=== PATIENT | female | born 1945 | race Caucasian/White ===

== ENCOUNTER 2021-03-26 14:15 | Emergency (ER) | payer MEDICARE ==
--- NOTE | 2021-03-26 15:17 | EDM.PDOC ---
ED HPI GENERAL MEDICAL PROBLEM - General Chief Complaint: Head Injury Stated Complaint: HEAD INJURY Time Seen by Provider: 03/26/21 15:00 Source of Information: Reports: Patient History Limitations: Reports: No Limitations - History of Present Illness INITIAL COMMENTS - FREE TEXT/NARRATIVE: 76-year-old female arrives after a closed head injury causing loss of consciousness, posttraumatic amnesia, and also some pain and swelling of her middle and ring finger on the right hand and some discomfort in the right lateral thigh. She is able to walk and bear weight. She now is neurologically intact and denies any headache, dizziness, visual complaints, nausea or vomiting. She has a small laceration or puncture wound just on the lateral aspect of the right eyebrow but swelling and tenderness through the temporal area on the right side. Denies any neck pain at this time. No shortness of breath or chest pain, no upper extremity pain other than the fingers on the right hand. She is unable to get her rings off due to early swelling of the PIP joints of those 2 fingers. Onset: Sudden Duration: Hour(s): (1/2 hours ago) Location: Reports: Head, Upper Extremity, Right, Lower Extremity, Right Quality: Reports: Ache, Sharp Associated Symptoms: Reports: Confusion (Had some post head injury confusion and amnesia but now has no neurologic symptoms). Denies: Chest Pain, Cough, Fever/Chills, Headaches, Loss of Appetite, Malaise, Nausea/Vomiting, Shortness of Breath, Weakness - Related Data Allergies Allergy/AdvReac Type Severity Reaction Status Date / Time Sulfa (Sulfonamide Allergy Other Verified 03/26/21 14:42 Antibiotics) Home Meds: Home Meds . [Unable to Verify Home Med List] 03/26/21 [History] Past Medical History HEENT History: Reports: Impaired Vision Cardiovascular History: Reports: High Cholesterol Social & Family History - Tobacco Use Tobacco Use Status *Q: Never Tobacco User - Recreational Drug Use Recreational Drug Use: No ED ROS GENERAL - Review of Systems Review Of Systems: See Below Constitutional: Denies: Fever, Chills, Malaise HEENT: Denies: Vision Change Respiratory: Denies: No Symptoms, Shortness of Breath Cardiovascular: Denies: Chest Pain GI/Abdominal: Denies: Abdominal Pain, Nausea, Vomiting : Reports: No Symptoms Musculoskeletal: Reports: Hand Pain (Right side), Leg Pain (Right side). Denies: Neck Pain, Shoulder Pain Skin: Reports: Other (Small puncture on the lateral right eyebrow, also some bruising developing in the middle and ring finger on the right hand.) Neurological: Reports: Difficulty Walking (Difficulty walking but that is due from discomfort of the right thigh). Denies: Dizziness, Headache ED EXAM, HEAD INJURY - Physical Exam Exam: See Below Exam Limited By: No Limitations General Appearance: Alert, No Apparent Distress Head: Other (Some diffuse swelling over the temporal area of the right scalp, also a small less than 1 cm laceration to the lateral aspect of the right eyebrow) Nexus Criteria: No: Posterior, Midline Cervical Tenderness, Focal Neurological Deficit Eyes: Bilateral Eye: Normal Inspection Neck: Non-Tender Respiratory: No Respiratory Distress, Lungs Clear Cardiovascular: Regular Rate, Rhythm Extremities: Other (Tender along the lateral aspect of the right thigh but no bony tenderness, palpation of the inner thigh is nontender and she is able to ambulate. There is no obvious swelling, hematoma or bruising developing. The right middle and ring fingers have swollen PIP joints) Neurologic: No Motor/Sensory Deficits Skin: Other (Bruising) - [place] Coma Score Best Eye Response ([place]): (4) Open Spontaneously Best Verbal Response ([place]): (5) Oriented Best Motor Response ([place]): (6) Obeys Commands Course - Vital Signs Last Recorded V/S: Last Vital Signs Temp 98.2 F 03/26/21 14:40 Pulse 98 03/26/21 14:40 Resp 20 03/26/21 14:40 BP 162/72 H 03/26/21 14:40 Pulse Ox 98 03/26/21 14:40 - Orders/Labs/Meds Orders: Active Orders 24 hr Category Date Time Status DME for Discharge [COMM] Stat Oth 03/26/21 16:01 Ordered Meds: Medications Discontinued Medications Generic Name Dose Route Start Last Admin Trade Name Dustin PRN Reason Stop Dose Admin Bacitracin 1 dose 03/26/21 16:04 03/26/21 16:07 Bacitracin Oint 1 Gm U/D Packet TOP 03/26/21 16:05 1 dose ONETIME ONE Administration - Re-Assessments/Exams Free Text/Narrative Re-Assessment/Exam: 03/26/21 15:17 We attempted to get her rings off her right hand but were unable but they are not too tight to allow to stay for at least a day or 2 and do not have to be removed at this time. They are not strangulating the fingers. An x-ray of the right hand was obtained as well as a CT of the head without contrast. 03/26/21 16:[address] and right hand x-rays were negative. Patient was given two 6 inch Meir wraps to wrap the right thigh for support and to avoid hematoma formation. Also given crutches to assist with ambulation. Small dab of bacitracin was applied to the forehead laceration along with a Band-Aid and dressings. Patient will continue icing sore spots for the next 24 to 48 hours and increase activity as tolerated. Tetanus is current. 03/26/21 16:14 1 Steri-Strip was applied across the small laceration on her right lateral eyebrow Departure - Departure Time of Disposition: 16:24 Disposition: Home, Self-Care 01 Clinical Impression: Concussion with less than 1 hour loss of consciousness Contusion of right thigh Qualifiers: Encounter type: initial encounter Qualified Code(s): S70.11XA - Contusion of right thigh, initial encounter Sprain of right middle finger Qualifiers: Encounter type: initial encounter Sprain of finger site: interphalangeal joint Qualified Code(s): S63.632A - Sprain of interphalangeal joint of right middle finger, initial encounter Laceration of right eyebrow Qualifiers: Encounter type: initial encounter Qualified Code(s): S01.111A - Laceration without foreign body of right eyelid and periocular area, initial encounter - Discharge Information Instructions: Concussion, Adult, [id number], Contusion, [id number] Referrals: PCP,None [Primary Care Provider] - Forms: ED Department Discharge Care Plan Goals: Ice down sore areas for the next 1 to 2 days, increase activity as tolerated and a regular dose of ibuprofen or naproxen will be helpful. Consider rechecking in 5 to 7 days if not improving satisfactorily. Use Meir wraps on the right thigh for support and to avoid further swelling. Keep your head wound covered and clean while healing. The Steri-Strips will wear off with time Sepsis Event Note (ED) - Evaluation Sepsis Screening Result: No Definite Risk - My Orders Last 24 Hours: My Active Orders 03/26/21 16:01 DME for Discharge [COMM] Stat - Assessment/Plan Last 24 Hours: My Active Orders 03/26/21 16:01 DME for Discharge [COMM] Stat
--- NOTE | 2021-03-26 15:24 | CR ---
Hand Comp Min 3V Rt CLINICAL HISTORY: Pain FINDINGS: There is no acute fracture or dislocation of the hand. There is some interphalangeal joint space narrowing. Impression: No fracture Mild osteoarthritic change
--- NOTE | 2021-03-26 16:01 | CT ---
Head wo Cont CLINICAL HISTORY: Fall, pain COMPARISON: None TECHNIQUE: Transverse scans were obtained from the base of the skull through the vertex without IV contrast on a multislice, multidetector CT scanner. Auto dosage reduction and iterative reconstruction techniques employed. FINDINGS: No focal abnormal parenchymal density is identified. There is no mass effect, hemorrhage, or extraaxial collection. The basal cisterns and sulci over the convexities are mildly prominent. The ventricles are normal for age. There are a few scattered subcortical lucencies. IMPRESSION: No acute intracranial process Mild age-related atrophy with some chronic ischemic microvascular changes
[2021-03-26] MEDS: Bacitracin Oint 1 GM U/D Packet TOP ONE (16:07)
== END 2021-03-26 16:31 | disposition home or self-care (01) ==
LOC: JP.ED 14:15
DX: S06.0X1A Concussion with loss of consciousness of 30 minutes or less, initial encounter (principal); S63.632A Sprain of interphalangeal joint of right middle finger, initial encounter; S70.11XA Contusion of right thigh, initial encounter; Z88.2 Allergy status to sulfonamides; W18.39XA Other fall on same level, initial encounter; Y92.828 Other wilderness area as the place of occurrence of the external cause
CPT/HCPCS: 70450; 70450-26; 73130-26-RT; 73130-RT; 99284-25